=== PATIENT | female | born 1975 | race American Indian/Alaskan Native ===

== ENCOUNTER 2016-07-11 13:59 | Emergency (ER) | payer MEDICAID ==
[2016-07-11 14:06] VITALS: PULSE 73; RESP 16; TEMP 97; O2SAT 100
--- NOTE | 2016-07-11 14:34 | ED PDOC ---
Lower Extremity Pain/Injury Time Seen by Provider: 07/11/16 14:07 Chief Complaint (Nursing): Lower Extremity Problem/Injury History Per: Patient History/Exam Limitations: no limitations Additional Complaint(s): 41-year-old female, PMHx includes Arthritis, presents to the emergency department with complaints of knee pain. Patient states she has been experiencing non-traumatic pain in her left knee for the past week. Pain is persistent in nature, and worse w/ palpation, weight bearing and movement. Associated symptoms include swelling. Patient reports she was seen in [facility], where they did an x-ray and prescribed Tramadol. Patient reports she has not taken the medication because she did not think it would help. Denies nausea/vomiting, fevers, dizziness, back pain, recent travel, rashes, shortness of breath, or any other associated symptoms. No other complaints at this time. Past Medical History Reviewed: Historical Data, Nursing Documentation, Vital Signs Vital Signs: Last Vital Signs Temp 97.0 F L 07/11/16 14:01 Pulse 73 07/11/16 14:01 Resp 16 07/11/16 14:01 BP 153/104 H 07/11/16 14:01 Pulse Ox 100 07/11/16 14:01 - Family History Family History: States: Unknown Family Hx - Home Medications Home Medications: Ambulatory Orders Medication Instructions Recorded predniSONE [predniSONE Tab] 20 mg PO DAILY #12 tab 07/11/16 - Allergies Allergies/Adverse Reactions: Allergies Allergy/AdvReac Type Severity Reaction Status Date / Time No Known Allergies Allergy Verified 07/11/16 14:06 Review of Systems ROS Statement: Except As Marked, All Systems Reviewed And Found Negative Constitutional: Negative for: Fever, Chills Cardiovascular: Negative for: Chest Pain Respiratory: Negative for: Shortness of Breath Gastrointestinal: Negative for: Nausea, Vomiting Musculoskeletal: Positive for: Leg Pain (KNEE PAIN) Skin: Negative for: Rash Neurological: Negative for: Weakness, Numbness, Headache, Dizziness Physical Exam - Reviewed Nursing Documentation Reviewed: Yes Vital Signs Reviewed: Yes - Physical Exam Appears: Positive for: Non-toxic, No Acute Distress Head Exam: Positive for: ATRAUMATIC, NORMOCEPHALIC Skin: Positive for: Warm, Dry. Negative for: Rash Eye Exam: Positive for: Normal appearance Neck: Positive for: Painless ROM Respiratory: Negative for: Accessory Muscle Use, Respiratory Distress Extremity: Positive for: Tenderness, Calf Tenderness, Capillary Refill (<2 SEC) , Swelling, Other (LEFT KNEE: LIMITED ROM SECONDARY TO PAIN. MILD TENDERNESS TO PALPATION. MILD SWELLING. NO WARMTH). Negative for: Pedal Edema, Deformity Neurologic/Psych: Positive for: Alert, Oriented - ECG O2 Sat by Pulse Oximetry: 100 Medical Decision Making Medical Decision Making: Impression: 41y/o F (+)Arthritis, comes in w/ L knee swelling and pain x1 week. Plan: * Toradol, Tramadol * US LE * Reassess and Disposition 14:50 - Pt states she does not want to stay for US. Discussed DVT (clot in leg) . Pt demonstrates understanding. PT states she came to have her knee drained. Scribe Attestation: Documented by Arlette Dickson, acting as a scribe for LANDON Ramos. Provider Attestation: All medical record entries made by the Scribe were at my direction and personally dictated by me. I have reviewed the chart and agree that the record accurately reflects my personal performance of the history, physical exam, medical decision making, and the department course for this patient. I have also personally directed, reviewed, and agree with the discharge instructions and disposition. Disposition - Clinical Impression Clinical Impression: Left knee pain - Patient ED Disposition Is Patient to be Admitted: No Counseled Patient/Family Regarding: Diagnosis, Need For Followup - Disposition Referrals: [facility] [Outside] Iggy Castanon III, MD [Staff Provider] - Disposition: Routine/Home Disposition Time: 14:47 Condition: GOOD Prescriptions: predniSONE [predniSONE Tab] 20 mg PO DAILY #12 tab Instructions: Knee Pain (ED)
[2016-07-11 15:12] VITALS: BP 146/79
== END 2016-07-11 15:06 | disposition home or self-care (01) ==
LOC: H.ER 13:59
DX: M25.562 Pain in left knee (principal)